=== PATIENT | male | born 1955 | race Caucasian/White ===

== ENCOUNTER 2020-01-25 11:32 | Emergency (ER) | payer BC ==
[~2020-01-25] VITALS: Ht 190.5 cm; Wt 105.8 kg
[2020-01-25 11:41] VITALS: TEMP 98.1
[2020-01-25 12:30] LABS: BASO % 0.2 % (0.0-2.0); EOS % 0.4 % (0-4.0); GRAN # 7.2 (1.4-6.5); GRAN % 74.1 % (42.2-75.2); HEMATOCRIT 41.2 % (42.0-52.0); HEMOGLOBIN 13.5 g/dl (13.5-18.0); LYMPH # 1.6 (1.2-3.4); LYMPH % 16.9 % (20.0-51.0); MEAN CELL VOLUME 89 fl (80.0-100.0); MEAN CORPUSCULAR HEMOGLOBIN 29 pg (27.0-31.0); MEAN CORPUSCULAR HGB CONC 33 g/dl (33.0-37.0); MEAN PLATELET VOLUME 11.2 fl (7.4-10.4); MONO # 0.8 (0.1-0.6); MONO % 8.2 % (1.7-9.3); PLATELET COUNT 214 K/mm3 (130-400); RED BLOOD COUNT 4.64 M/mm3 (4.20-5.60); REDCELL DISTRIBUTION WIDTH-CV 14.4 % (11.5-14.5)
[2020-01-25 12:43] LABS: ALBUMIN 4.3 gm/dL (3.5-5.0); BILIRUBIN,TOTAL 1.3 mg/dL (0.0-1.0); C-REACTIVE PROTEIN 6.3 mg/dL (0.0-0.9); CALCIUM 10.4 mg/dL (8.4-10.2); CREATININE, serum 1.06 (0.66-1.25); POTASSIUM 4.2 mmol/L (3.4-5.0); TOTAL PROTEIN 7.6 gm/dL (6.4-8.2)
[2020-01-25 13:21] LABS: ERYTHROCYTE SEDIMENTATION RATE 7 mm/hr (0-30)
[2020-01-25] MEDS ORDERED: DOXYCYCLINE 10100 MG PO (13:31)
[2020-01-25] MEDS ORDERED: NORCO 325 MG-51 TAB PO (13:31)
[2020-01-25 14:11] VITALS: BP 121/89; PULSE 53
[2020-01-27] MEDS ORDERED: PRILOTC PO (23:58)
== END 2020-01-25 14:13 | disposition home or self-care (01) ==
LOC: COL.ER 11:32
PROVIDERS: Physician Assistant
DX: M70.32 Other bursitis of elbow, left elbow (principal); L03.114 Cellulitis of left upper limb; K21.9 Gastro-esophageal reflux disease without esophagitis; W22.8XXA Striking against or struck by other objects, initial encounter; Y92.59 Other trade areas as the place of occurrence of the external cause
CPT/HCPCS: J0696; J1885; J7030

== ENCOUNTER → 2022-11-09 | Outpatient (CLI) | payer MEDICARE, BC ==
[~2022-11-09] MED LIST: AMOXICILLIN 8751 TAB PO; DOXYCYCLINE 10100 MG PO; NORCO 325 MG-51 TAB PO; PRILOTC PO
== END ==
LOC: COL.VAS 10-14 12:30
DX: I51.7 Cardiomegaly (principal)